=== PATIENT | male | born 1965 | race Caucasian/White ===

== ENCOUNTER → 2018-12-17 | Outpatient (CLI) | payer OTHER ==
[~2018-12-17] MED LIST: ALBU90OI INH; AZIT250 PO; Bactrim Ds Tab1 EACH PO; CEPH500 PO; CYCL10 PO; HYDACE5 PO; HYDR1TAB94 PO; Keflex500 MG PO; META800 PO; Naprosyn500 MG PO; Norco 5-325 Ta1 EACH PO; SULTRIDS PO
[2018-12-17 18:10] LABS: BASOPHILS ABSOLUTE AUTO 0.09 K/mm3 (0.00-0.23); BASOPHILS PERCENT AUTO 1 % (0-2); EOSINOPHILS ABSOLUTE AUTO 0.15 K/mm3 (0.00-0.68); EOSINOPHILS PERCENT AUTO 2 % (0-6); Hematocrit 45.1 % (37.0-53.0); Hemoglobin 14.7 g/dL (13.5-17.5); IMMATURE GRAN ABSOLUTE AUTO 0.02 K/mm3 (0.00-0.10); IMMATURE GRAN PERCENT AUTO 0 % (0-1); LYMPHOCYTES ABSOLUTE AUTO 2.31 K/mm3 (0.84-5.20); LYMPHOCYTES PERCENT AUTO 28 % (21-46); MONOCYTES ABSOLUTE AUTO 0.85 K/mm3 (0.16-1.47); MONOCYTES PERCENT AUTO 10 % (4-13); Mean Corpuscular HGB 31.5 pg (26.0-34.0); Mean Corpuscular HGB Conc 32.6 g/dL (31.5-36.5); Mean Corpuscular Volume 97 fL (80-100); Mean Platelet Volume 10.7 fL (9.1-12.4); NEUTROPHILS ABSOLUTE AUTO 4.88 K/mm3 (1.96-9.15); NEUTROPHILS PERCENT AUTO 59 % (41-73); Platelet Count 400 K/mm3 (150-400); RDW Standard Deviation 42.9 fL (35.1-46.3); Red Blood Cell Count 4.67 M/mm3 (4.30-5.90)
[2018-12-17 18:45] LABS: Alanine Aminotransfer (ALT/SGP 42 U/L (12-78); Albumin, Blood 4.3 g/dL (3.4-5.0); Albumin/Globulin Ratio 1.3 (0.8-1.8); Alk Phos 102 U/L (50-136); Anion Gap 8 mmol/L (6-16); Aspartate Aminotrans (AST/SGOT 39 U/L (12-37); Bilirubin, Total 0.7 mg/dL (0.1-1.0); Blood Urea Nitrogen 31 mg/dL (8-24); Bun/Creatinine Ratio 27.4 (12.0-20.0); CHOL/HDL RATIO 2.9; CO2, Blood 28 mmol/L (21-32); Calcium, Blood 9.1 mg/dL (8.5-10.1); Chloride, Blood 104 mmol/L (98-108); Cholesterol 215 mg/dL (50-200); Creatinine, Blood 1.13 mg/dL (0.60-1.20); Globulin, Blood 3.4 g/dL (2.2-4.0); Glomerular Filtration Rate >60 (60-); Glucose, Blood 101 mg/dL (70-99); HDL Cholesterol 75 mg/dL (>39); LDL/HDL RATIO 1.7; Low Density Lipoprotein Chol 125 mg/dL (0-110); Potassium, Blood 4.2 mmol/L (3.5-5.5); Sodium, Blood 140 mmol/L (136-145); Total Protein, Blood 7.7 g/dL (6.4-8.2); Triglycerides 77 mg/dL (30-160); Very Low Density Lipoprot Chol 15 mg/dL (6-32)
== END ==
LOC: LAB 17:45 → LAB SHORT 17:45
PROVIDERS: Nurse Practitioner Family
DX: I10 Essential (primary) hypertension (principal)
CPT/HCPCS: 80053; 80061; 85025

== ENCOUNTER 2019-02-10 21:01 | Emergency (ER) | payer OTHER ==
[~2019-02-10] VITALS: Ht 177.8 cm; Wt 93.0 kg
== END 2019-02-10 22:30 | disposition home or self-care (01) ==
LOC: ER 21:01
DX: M25.511 Pain in right shoulder (principal); F17.200 Nicotine dependence, unspecified, uncomplicated
CPT/HCPCS: 20610; 96372-59; 99283-25; J3301

== ENCOUNTER 2019-03-14 04:31 | Emergency (ER) | payer OTHER ==
[~2019-03-14] VITALS: Ht 175.3 cm; Wt 95.2 kg
== END 2019-03-14 05:45 | disposition home or self-care (01) ==
LOC: ER 04:31
DX: S81.812A Laceration without foreign body, left lower leg, initial encounter (principal); Z87.891 Personal history of nicotine dependence; W01.0XXA Fall on same level from slipping, tripping and stumbling without subsequent striking against object, initial encounter
CPT/HCPCS: 12002; 90471; 90714; 99282-25

== ENCOUNTER 2019-03-16 10:28 | Emergency (ER) | payer OTHER | END 2019-03-16 10:39 | disposition left against medical advice (07) | LOC: ER 10:28 | DX: Z53.21 Procedure and treatment not carried out due to patient leaving prior to being seen by health care provider (principal); M25.579 Pain in unspecified ankle and joints of unspecified foot ==

== ENCOUNTER 2019-08-20 09:19 | Day surgery (SDC) | payer OTHER ==
[~2019-08-20] VITALS: Ht 177.8 cm; Wt 101.4 kg
[~2019-08-20 09:19] MED LIST changes: +ALBU90OI; +DICL75ER; +QVAR REDIHALE10.6 G1; +TIZA4; +Voltaren100 GM; +ZESTORETIC 20-251 EA
--- NOTE | 2019-08-20 12:06 | NUR ---
08/20/19 1206 HARRIET CARLOS RIGHT SHOULDER BLOCK PERFORMED WITH DR. SAUCEDO. TIME OUT 1149 START TIME 1150 END TIME 1200 VITALS: 149/93, O2 95%, HR 93 PATIENT VERBALIZED NO COMPLAINTS POST PROCEDURE. VSS THROUGHOUT PROCEDURE.
== END 2019-08-20 14:49 | disposition home or self-care (01) ==
LOC: ORSCSDS 09:19
PROVIDERS: Orthopaedic Surgery
PROC: 0RNJ4ZZ Release Right Shoulder Joint, Percutaneous Endoscopic Approach (ICD-10-PCS; principal; 2019-08-20 11:15)
PROC: 0LS14ZZ Reposition Right Shoulder Tendon, Percutaneous Endoscopic Approach (ICD-10-PCS; principal; 2019-08-20 11:15)
PROC: 0LQ14ZZ Repair Right Shoulder Tendon, Percutaneous Endoscopic Approach (ICD-10-PCS; principal; 2019-08-20 11:15)
PROC: 0LU14JZ Supplement Right Shoulder Tendon with Synthetic Substitute, Percutaneous Endoscopic Approach (ICD-10-PCS; principal; 2019-08-20 11:15)
DX: M75.121 Complete rotator cuff tear or rupture of right shoulder, not specified as traumatic (principal); M75.41 Impingement syndrome of right shoulder; M75.21 Bicipital tendinitis, right shoulder; I10 Essential (primary) hypertension; I25.2 Old myocardial infarction; J44.9 Chronic obstructive pulmonary disease, unspecified; F17.210 Nicotine dependence, cigarettes, uncomplicated; Z79.899 Other long term (current) drug therapy
CPT/HCPCS: C1713; J0171; J0690; J1100; J2250; J2370; J2405; J2704; J2710; J2795; J3010; J7120

== ENCOUNTER 2020-05-15 21:03 | Emergency (ER) | payer OTHER ==
[~2020-05-15] VITALS: Ht 175.3 cm; Wt 95.2 kg
[2020-05-15 21:38] LABS: BASOPHILS ABSOLUTE AUTO 0.11 K/mm3 (0.00-0.23); BASOPHILS PERCENT AUTO 1 % (0-2); EOSINOPHILS ABSOLUTE AUTO 0.47 K/mm3 (0.00-0.68); EOSINOPHILS PERCENT AUTO 4 % (0-6); Hematocrit 50.7 % (37.0-53.0); Hemoglobin 16.7 g/dL (13.5-17.5); IMMATURE GRAN ABSOLUTE AUTO 0.08 K/mm3 (0.00-0.10); IMMATURE GRAN PERCENT AUTO 1 % (0-1); LYMPHOCYTES ABSOLUTE AUTO 3.27 K/mm3 (0.84-5.20); LYMPHOCYTES PERCENT AUTO 29 % (21-46); MONOCYTES ABSOLUTE AUTO 1.01 K/mm3 (0.16-1.47); MONOCYTES PERCENT AUTO 9 % (4-13); Mean Corpuscular HGB 31.9 pg (26.0-34.0); Mean Corpuscular HGB Conc 32.9 g/dL (31.5-36.5); Mean Corpuscular Volume 97 fL (80-100); Mean Platelet Volume 10.1 fL (9.1-12.4); NEUTROPHILS ABSOLUTE AUTO 6.52 K/mm3 (1.96-9.15); NEUTROPHILS PERCENT AUTO 57 % (41-73); Platelet Count 384 K/mm3 (150-400); RDW Coefficient Variation 12.3 % (11.7-14.2); RDW Standard Deviation 44.4 fL (35.1-46.3); Red Blood Cell Count 5.24 M/mm3 (4.30-5.90); White Blood Cell Count 11.46 K/mm3 (4.00-11.30)
[2020-05-15 21:56] LABS: Alanine Aminotransfer (ALT/SGP 81 U/L (12-78); Albumin, Blood 3.5 g/dL (3.4-5.0); Albumin/Globulin Ratio 0.9 (0.8-1.8); Alk Phos 166 U/L (50-136); Anion Gap 10 mmol/L (6-16); Aspartate Aminotrans (AST/SGOT 42 U/L (12-37); Bilirubin, Total 0.2 mg/dL (0.1-1.0); Blood Urea Nitrogen 16 mg/dL (8-24); Bun/Creatinine Ratio 16.3 (12.0-20.0); CO2, Blood 23 mmol/L (21-32); Calcium, Blood 9.3 mg/dL (8.5-10.1); Chloride, Blood 109 mmol/L (98-108); Creatinine, Blood 0.98 mg/dL (0.60-1.20); Glomerular Filtration Rate >60 (60-); Glucose, Blood 129 mg/dL (70-99); Potassium, Blood 3.8 mmol/L (3.5-5.5); Sodium, Blood 142 mmol/L (136-145); Total Protein, Blood 7.5 g/dL (6.4-8.2); Troponin I <0.015 ng/mL (0.000-0.040)
== END 2020-05-15 23:53 | disposition left against medical advice (07) ==
LOC: ER 21:03
PROVIDERS: Physician Assistant
DX: R06.02 Shortness of breath (principal); R10.9 Unspecified abdominal pain; R51.9 Headache, unspecified; R11.2 Nausea with vomiting, unspecified; R50.9 Fever, unspecified; R05 Cough; Z53.21 Procedure and treatment not carried out due to patient leaving prior to being seen by health care provider
CPT/HCPCS: 36415; 80053; 83690; 84484; 85025; 93005; 93010; 99285-25

== ENCOUNTER 2020-12-31 06:50 | Inpatient (IN) | payer OTHER ==
[~2020-12-31] VITALS: Ht 175.3 cm; Wt 95.9 kg
[~2020-12-31 06:50] MED LIST changes: -ALBU90OI; -QVAR REDIHALE10.6 G1; +QVAR REDIHALE10.6 G3 INH
[2020-12-31 07:39] LABS: BASOPHILS ABSOLUTE AUTO 0.03 K/mm3 (0.00-0.23); BASOPHILS PERCENT AUTO 0 % (0-2); EOSINOPHILS PERCENT AUTO 0 % (0-6); Hematocrit 48.4 % (37.0-53.0); Hemoglobin 16.4 g/dL (13.5-17.5); IMMATURE GRAN ABSOLUTE AUTO 0.04 K/mm3 (0.00-0.10); IMMATURE GRAN PERCENT AUTO 0 % (0-1); LYMPHOCYTES ABSOLUTE AUTO 0.66 K/mm3 (0.84-5.20); LYMPHOCYTES PERCENT AUTO 7 % (21-46); MONOCYTES ABSOLUTE AUTO 0.63 K/mm3 (0.16-1.47); MONOCYTES PERCENT AUTO 6 % (4-13); Mean Corpuscular HGB 30.9 pg (26.0-34.0); Mean Corpuscular HGB Conc 33.9 g/dL (31.5-36.5); Mean Corpuscular Volume 91 fL (80-100); Mean Platelet Volume 10.3 fL (9.1-12.4); NEUTROPHILS ABSOLUTE AUTO 8.52 K/mm3 (1.96-9.15); NEUTROPHILS PERCENT AUTO 86 % (41-73); Platelet Count 226 K/mm3 (150-400); RDW Coefficient Variation 12.1 % (11.7-14.2); White Blood Cell Count 9.88 K/mm3 (4.00-11.30)
[2020-12-31 07:56] LABS: Alanine Aminotransfer (ALT/SGP 72 U/L (12-78); Albumin, Blood 2.9 g/dL (3.4-5.0); Albumin/Globulin Ratio 0.7 (0.8-1.8); Alk Phos 145 U/L (50-136); Anion Gap 8 mmol/L (6-16); Aspartate Aminotrans (AST/SGOT 45 U/L (12-37); Bilirubin, Total 0.3 mg/dL (0.1-1.0); Blood Urea Nitrogen 21 mg/dL (8-24); Bun/Creatinine Ratio 19.4 (12.0-20.0); CO2, Blood 23 mmol/L (21-32); Calcium, Blood 8.3 mg/dL (8.5-10.1); Chloride, Blood 101 mmol/L (98-108); Creatinine, Blood 1.08 mg/dL (0.60-1.20); Globulin, Blood 4.2 g/dL (2.2-4.0); Glomerular Filtration Rate >60 (60-); Glucose, Blood 195 mg/dL (70-99); Potassium, Blood 3.9 mmol/L (3.5-5.5); Sodium, Blood 132 mmol/L (136-145); Total Protein, Blood 7.1 g/dL (6.4-8.2)
[2020-12-31 08:56] LABS: SARS-Cov-2 (COVID-19) PCR, MMC POSITIVE (NEGATIVE)
[2020-12-31] MEDS ORDERED: PRED20 PO (12:10)
[2020-12-31] MEDS ORDERED: HYDPAM25 PO (12:12)
[2020-12-31 14:24] LABS: U Amphetamine Screen Not Detected; U Barbituate Screen Not Detected; U Benzodiazapine Screen Not Detected; U Cocaine Screen Not Detected; U Methamphetamine Screen Not Detected
[2020-12-31 14:25] LABS: U Buprenorphine Screen Not Detected; U Cannabinoids Screen DETECTED; U Methadone Screen Not Detected; U Opiates Screen Not Detected; U Oxycodone Screen Not Detected; U Phencyclidine Screen Not Detected; U Propoxyphene Screen Not Detected
--- NOTE | 2020-12-31 19:23 | NUR ---
SHIFT SUMMARY VEDA ARRIVED FROM ER THIS MORNING, DENIED PAIN. WEANED TO RA, SATS UPPER 90S. SOME S/S WITHDRAWL INCLUDING SWEATS, SLIGHT SHAKING, ANXIETY. ONE PRN DOSE LIBRIUM GIVEN, PT EDUCATED ON FALL PRECAUTIONS, WITHDRAWL S/S, SCORING FROM 3-7 . NO FEVER THIS SHIFT SINCE ARRIVAL. CALL LIGHT IN REACH, REPORT GIVEN TO RODERICK KUHN
[2021-01-01 04:53] LABS: BASOPHILS ABSOLUTE AUTO 0.01 K/mm3 (0.00-0.23); BASOPHILS PERCENT AUTO 0 % (0-2); EOSINOPHILS PERCENT AUTO 0 % (0-6); Hematocrit 44.6 % (37.0-53.0); Hemoglobin 15.6 g/dL (13.5-17.5); IMMATURE GRAN ABSOLUTE AUTO 0.08 K/mm3 (0.00-0.10); IMMATURE GRAN PERCENT AUTO 1 % (0-1); LYMPHOCYTES ABSOLUTE AUTO 0.75 K/mm3 (0.84-5.20); LYMPHOCYTES PERCENT AUTO 7 % (21-46); MONOCYTES ABSOLUTE AUTO 0.88 K/mm3 (0.16-1.47); MONOCYTES PERCENT AUTO 9 % (4-13); Mean Corpuscular Volume 92 fL (80-100); Mean Platelet Volume 10.4 fL (9.1-12.4); NEUTROPHILS ABSOLUTE AUTO 8.59 K/mm3 (1.96-9.15); NEUTROPHILS PERCENT AUTO 83 % (41-73); Platelet Count 234 K/mm3 (150-400); RDW Standard Deviation 40.5 fL (35.1-46.3); Red Blood Cell Count 4.87 M/mm3 (4.30-5.90); White Blood Cell Count 10.31 K/mm3 (4.00-11.30)
[2021-01-01 05:15] LABS: Alanine Aminotransfer (ALT/SGP 60 U/L (12-78); Albumin, Blood 2.6 g/dL (3.4-5.0); Albumin/Globulin Ratio 0.7 (0.8-1.8); Alk Phos 117 U/L (50-136); Anion Gap 5 mmol/L (6-16); Aspartate Aminotrans (AST/SGOT 35 U/L (12-37); Bilirubin, Total 0.3 mg/dL (0.1-1.0); Blood Urea Nitrogen 20 mg/dL (8-24); CO2, Blood 25 mmol/L (21-32); Chloride, Blood 106 mmol/L (98-108); Creatinine, Blood 0.95 mg/dL (0.60-1.20); Globulin, Blood 3.7 g/dL (2.2-4.0); Glomerular Filtration Rate >60 (60-); Glucose, Blood 117 mg/dL (70-99); Magnesium, Blood 2.2 mg/dL (1.6-2.4); Potassium, Blood 4.1 mmol/L (3.5-5.5); Sodium, Blood 136 mmol/L (136-145); Total Protein, Blood 6.3 g/dL (6.4-8.2)
--- NOTE | 2021-01-01 07:30 | NUR ---
ASSUMED CARE: PT IN ROOM ON ROOM AIR. PORCELAIN BUILDUP ASSISTANT AT BEDSIDE. NO ACUTE NEEDS OR CONCERNS AT THIS TIME.
--- NOTE | 2021-01-01 07:39 | NUR ---
A/OX4. TMAX IN AM AT 100.6C, TYLENOL GIVEN. CIWA AT 10 IN EVENING, 2MG IV ATIVAN GIVEN. PATIENT SCORING LOW REMAINDER OF SHIFT. PT EATING/DRINKING. FLUIDS D/C AT 0500. INDEPENDENT TO TOILET. USING CALL LIGHT TO MAKE NEEDS KNOWN.
--- NOTE | 2021-01-01 14:42 | NUR ---
RN CAME INTO ROOM TO DISCONNECT IV AND PT BEGAN YELLING ABOUT HOW IRRITATED HE WAS ABOUT THE IV'S BEEPING AND HAVING TO BE CONNECTED TO THEM. OFFERED LIBRIUM AND HE SAID THAT WOULD BE FINE BUT HE WAS STILL LEAVING. LEFT TO GET LIBRIUM AND PT WAS ON PHONE WITH FAMILY TO GET A RIDE. TOLD HIM TO CALL WHEN RIDE GOT HERE AND IV'S WOULD BE DC'D. CALL TO DR STEWART TO MAKE HER AWARE AND SHE SAID SHE WOULD CONTACT DR DIAZ. PT CALLED THAT RIDE WAS HERE. IV DC'D WNL. PT STATED HE WAS AWARE THAT HE WOULD NOT GET ANY PRESCRIPTION OR DC INSTRUCTIONS ASSISTANCE. PT STATED THAT "ALL COMPLICATIONS ARE MY PROBLEM." AMBULATORY UPON DISCHARGE. DR DIAZ AWARE.
== END 2021-01-01 14:32 | disposition left against medical advice (07) | DRG 871 ==
LOC: ER 06:50 → MEDS 09:20
PROVIDERS: Emergency Medicine; Nurse Practitioner Acute Care; ADMIT Internal Medicine
PROC: 8E0ZXY6 Isolation (ICD-10-PCS; principal; 2020-12-31)
PROC: XW033E5 Introduction of Remdesivir Anti-infective into Peripheral Vein, Percutaneous Approach, New Technology Group 5 (ICD-10-PCS; 2020-12-31)
PROC: HZ2ZZZZ Detoxification Services for Substance Abuse Treatment (ICD-10-PCS; 2021-01-01)
DX: A41.89 Other specified sepsis (principal); U07.1 COVID-19; J12.82 Pneumonia due to coronavirus disease 2019; J96.01 Acute respiratory failure with hypoxia; E87.1 Hypo-osmolality and hyponatremia; J44.0 Chronic obstructive pulmonary disease with (acute) lower respiratory infection; J44.1 Chronic obstructive pulmonary disease with (acute) exacerbation; R65.20 Severe sepsis without septic shock; I11.0 Hypertensive heart disease with heart failure; I50.9 Heart failure, unspecified; F10.20 Alcohol dependence, uncomplicated; R56.9 Unspecified convulsions; J62.8 Pneumoconiosis due to other dust containing silica; Z96.651 Presence of right artificial knee joint; Z98.890 Other specified postprocedural states; Z79.51 Long term (current) use of inhaled steroids; Z79.899 Other long term (current) drug therapy
CPT/HCPCS: 36415; 71045; 80053; 83605; 83735; 84145; 85025; 87040; 93005; 93010; 94640; 94644; 94760; 96361; 96365; 96367; 99285-25; A9270; J0456; J0696; J1650; J2060; J3475; J7030; J7050; U0004

== ENCOUNTER 2021-01-03 20:20 | Inpatient (IN) | payer OTHER ==
[~2021-01-03] VITALS: Ht 172.7 cm; Wt 95.2 kg
[~2021-01-03 20:20] MED LIST changes: +HYDPAM25 PO; +PRED20 PO
[2021-01-03 20:43] LABS: BASOPHILS ABSOLUTE AUTO 0.05 K/mm3 (0.00-0.23); BASOPHILS PERCENT AUTO 0 % (0-2); EOSINOPHILS ABSOLUTE AUTO 0.02 K/mm3 (0.00-0.68); EOSINOPHILS PERCENT AUTO 0 % (0-6); Hematocrit 44.4 % (37.0-53.0); Hemoglobin 15.6 g/dL (13.5-17.5); Mean Corpuscular HGB 31.9 pg (26.0-34.0); Mean Corpuscular HGB Conc 35.1 g/dL (31.5-36.5); Mean Corpuscular Volume 91 fL (80-100); Platelet Count 424 K/mm3 (150-400); RDW Standard Deviation 39.8 fL (35.1-46.3); Red Blood Cell Count 4.89 M/mm3 (4.30-5.90); White Blood Cell Count 11.29 K/mm3 (4.00-11.30)
[2021-01-03 20:47] LABS: IMMATURE GRAN ABSOLUTE AUTO 0.19 K/mm3 (0.00-0.10); IMMATURE GRAN PERCENT AUTO 2 % (0-1); LYMPHOCYTES ABSOLUTE AUTO 1.08 K/mm3 (0.84-5.20); LYMPHOCYTES PERCENT AUTO 10 % (21-46); MONOCYTES ABSOLUTE AUTO 0.97 K/mm3 (0.16-1.47); MONOCYTES PERCENT AUTO 9 % (4-13); NEUTROPHILS ABSOLUTE AUTO 8.98 K/mm3 (1.96-9.15); NEUTROPHILS PERCENT AUTO 80 % (41-73)
[2021-01-03 20:57] LABS: Anion Gap 8 mmol/L (6-16); Blood Urea Nitrogen 25 mg/dL (8-24); Bun/Creatinine Ratio 22.5 (12.0-20.0); CO2, Blood 25 mmol/L (21-32); Calcium, Blood 8.5 mg/dL (8.5-10.1); Chloride, Blood 100 mmol/L (98-108); Creatinine, Blood 1.11 mg/dL (0.60-1.20); Glomerular Filtration Rate >60 (60-); Glucose, Blood 218 mg/dL (70-99); Potassium, Blood 4.1 mmol/L (3.5-5.5); Sodium, Blood 133 mmol/L (136-145)
[2021-01-03 21:40] LABS: Magnesium, Blood 2.2 mg/dL (1.6-2.4)
--- NOTE | 2021-01-04 00:20 | NUR ---
CARE ASSUMPTION UPON ARRIVAL PT WAS COOPERATIVE. PT WAS ANXIOUS, HAD A HEADACHE AND WAS DIAPHORETIC CIWA-8. LIBRIUM GIVEN PER ORDER. PT DENIED ANY SOB AND MAINTAINED O2 SATS >92% ON AIRVO 40L/40% FIO2. LUNG SOUNDS ARE CLEAR WITH DIMINISHED BILAT BASES, NO COUGH NOTED. PT GIVEN WATER AND OPTION TO WEAR HOSPITAL GOWN WHICH HE DECLINED HE WAS FEELING WARM. VSS AT THIS TIME AND AFEBRILE. PT IS CURRRENTLY SLEEPING WITH CALL LIGHT IN REACH.
[2021-01-04 03:29] LABS: BASOPHILS ABSOLUTE AUTO 0.09 K/mm3 (0.00-0.23); BASOPHILS PERCENT AUTO 1 % (0-2); EOSINOPHILS ABSOLUTE AUTO 0.02 K/mm3 (0.00-0.68); EOSINOPHILS PERCENT AUTO 0 % (0-6); Hematocrit 43.8 % (37.0-53.0); Hemoglobin 14.9 g/dL (13.5-17.5); Mean Corpuscular HGB 31.6 pg (26.0-34.0); Mean Corpuscular Volume 93 fL (80-100); Mean Platelet Volume 10.1 fL (9.1-12.4); Platelet Count 359 K/mm3 (150-400); RDW Coefficient Variation 11.9 % (11.7-14.2); RDW Standard Deviation 41.2 fL (35.1-46.3); Red Blood Cell Count 4.71 M/mm3 (4.30-5.90); White Blood Cell Count 13.76 K/mm3 (4.00-11.30)
[2021-01-04 03:32] LABS: IMMATURE GRAN ABSOLUTE AUTO 0.34 K/mm3 (0.00-0.10); IMMATURE GRAN PERCENT AUTO 3 % (0-1); LYMPHOCYTES ABSOLUTE AUTO 1.56 K/mm3 (0.84-5.20); LYMPHOCYTES PERCENT AUTO 11 % (21-46); MONOCYTES ABSOLUTE AUTO 1.44 K/mm3 (0.16-1.47); MONOCYTES PERCENT AUTO 11 % (4-13); NEUTROPHILS ABSOLUTE AUTO 10.31 K/mm3 (1.96-9.15); NEUTROPHILS PERCENT AUTO 75 % (41-73)
[2021-01-04 03:47] LABS: Alanine Aminotransfer (ALT/SGP 34 U/L (12-78); Albumin, Blood 2.2 g/dL (3.4-5.0); Albumin/Globulin Ratio 0.5 (0.8-1.8); Alk Phos 100 U/L (50-136); Anion Gap 3 mmol/L (6-16); Aspartate Aminotrans (AST/SGOT 31 U/L (12-37); Bilirubin, Total 0.4 mg/dL (0.1-1.0); Blood Urea Nitrogen 26 mg/dL (8-24); Bun/Creatinine Ratio 23.9 (12.0-20.0); CO2, Blood 27 mmol/L (21-32); Calcium, Blood 8.1 mg/dL (8.5-10.1); Chloride, Blood 104 mmol/L (98-108); Creatinine, Blood 1.09 mg/dL (0.60-1.20); Globulin, Blood 4.4 g/dL (2.2-4.0); Glomerular Filtration Rate >60 (60-); Glucose, Blood 154 mg/dL (70-99); Potassium, Blood 4.4 mmol/L (3.5-5.5); Sodium, Blood 134 mmol/L (136-145); Total Protein, Blood 6.6 g/dL (6.4-8.2)
--- NOTE | 2021-01-04 05:19 | NUR ---
SHOP MECHANIC HELPER SUMMARY PT HAS MAINTAINED O2 SATS >92% ON AIRVO 4L W 40% FIO2. PT IS AXO X3 NOT SURE OF THE DATE. PT HAS REMAINED AFEBRILE THIS SHIFT THOUGH HE HAS BEEN VERY DIAPHORETIC ALL NIGHT. CIWA'S 2-8 DUE TO DIAPHORESIS AND HEADACHE, 50MG LIBRIUM GIVEN X1, PT'S SBP IN THE 100'S THOUGH IT DID DROP LOW 77 WHILE HE WAS SLEEPING, BP BACK UP TO 100'S WHEN AWOKEN. TELE HAS SHOWN NSR IN THE 70'S WITH OCCASIONAL PVC'S. HR LOW 58 WHILE PT WAS ASLEEP. PT REPORTS NUMBNESS IN RLE FOR THE LAST 6 WEEKS. PT REPORTED DRINKING WHISKEY "JUST A SIP" BEFORE COMING TO THE HOSPITAL. PT SLEEPING ON AND OFF FOR MOST OF THE SHIFT. WILL REPORT TO ONCOMING RN.
--- NOTE | 2021-01-04 09:52 | NUR ---
Care Assumed - Provider visit Pt sleeping but easily awaken. When care assumed pt on Airvo 35 L, FIO2 40%, changed to 4 L via humidified NC. When asking pt questions, pts SPO2 decreased to 78%-low 80's with slow recovery. Pt denies feeling SOB but appears flushed. Pt switched to Airvo 35 L, FIO2 35%, SPO2 > 90%. Pt A/O, able to state correct location, event, and year but unable to state month/date. States drinking "fifth of whiskey" everyday and states last drink was a "few days ago." When asked what a few days means pt states two days ago. Currently not very diaphortics but has mild tremors, unable to add successfully, CIWA of 5.
--- NOTE | 2021-01-04 10:38 | NUR ---
Update- Family calls Pts sister, Laury called and updated on current pt status. All questions answered. Phone call transfered into room and pt speaking to sister. Missed phone call from , Risa, called back but unable to leave voicemail due to voicemail not being setup. Will attempt to call again.
--- NOTE | 2021-01-04 11:31 | NUR ---
Update- Pt crying Pt very emotional after speaking to sisterLaury on phone. Crying and states, " I don't want to " " no one can visit me, I want to go home ." Updated on visiting policy and made aware that he can have a visitor a day from [phone] and family can come to visit on window outside as well. Updated on current treatment being provided and fio2 requirments being low. Pt mood appears better after this and no longer crying. Educated on ETOH withdrawal and negative effects of drinking. pt states, "i will stop drinking, i want to live for my " ALso, educated on importance of staying in hospital for current treatment, pt states understanding and will stay. Airvo 35 L/min, FIO2 35% SPO2 > 90%. Lung sounds dim/clear. Pt has nonproductive cough. NSR. VSS. Eating lunch in bed and would like to shave marcus afterwards. Will assist with shaving marcus. Pt states having pain (5/10) on left lower rib from bull riding injury "years ago", treated per emar.
--- NOTE | 2021-01-04 12:11 | NUR ---
Update- pain pt continues to have left lower rib pain, 02/13. States having similar pain at home, started 10 years ago, comes once a month and last for one week. PT states " Starts when i'm not doing nothing, i have too many kids to worry about". Treated per emar with tramadol 50 mg. Will continue to monitor. vss. nsr. Dillon shaved per pt request, tolerated well.
--- NOTE | 2021-01-04 12:29 | NUR ---
Update- Spoke to , Risa Pts updated on patient status and currently on phone with pt. sister her daughter will be coming in to see pt. Pt appears cheerful after speaking to his .
--- NOTE | 2021-01-04 14:00 | NUR ---
Shift summary Report given to Puja Townsend. Dr. Hahn in to see patient, updated on patients pain and emotional status. Pt states pain has decreased to 5/10. Remains on Airvo, 35 l/MIN AND FIO2 35%. A/O X 4. Continues to be emotional, spoke to multiple family members on the phone. Father Sacha gave patient blessing from door and pt emotional but states thank you. VSS. NSR. Call light within reach.
--- NOTE | 2021-01-04 16:03 | NUR ---
ASSUMED CARE OF PT. REPORT RECEIVED FROM KEY LAN. PT RESTING IN BED WATCHING TV. PT'S SISTER CAME TO VISIT HIM, BUT REFUSED N95 AFTER BEING EDUCATED ON THE FACT THAT IT'S NOT GUARANTEED TO PROTECT HER SINCE SHE HASN'T BEEN FITTED. INSTEAD SHE JUST TALKED TO HIM ON THE PHONE FROM OUTSIDE THE DOOR OF THE ROOM. PT'S LUNGS ARE CLEAR. OXYGEN TURNED DOWN TO 7L FROM 9L ON THE HIGH FLOW NASAL CANNULA AND SPO2 REMAINS 97%. SR, BP STABLE. NO OTHER REQUESTS FROM PT AT THIS TIME. CONTINUE TO MONITOR.
--- NOTE | 2021-01-04 20:30 | NUR ---
ASSUMED CARE OF PT. REPORT RECEIVED FROM JUDITH MACKEY. PT LYING IN BED WATCHING TV. VSS. ON 7L HIGH FLOW NC, SPO2 97%. ANSWERING ALL ORIENTATION QUESTIONS, CONFUSED ABOUT MONTH/DATE OTHERWISE ANSWERS APPROPRIATELY. REQUESTING SOMETHING TO HELP WITH HAND TREMORS. CIWA SCORE 8, 25MG LIBRIUM GIVEN. PT COMPLAINING OF 8/10 L RIB PAIN, DECLINED NEED FOR PAIN MEDICATION AT THIS TIME STATES "DON'T NORMALLY TAKE ANYTHING, JUST WORK THROUGH THE PAIN", WILL CONTINUE TO MONITOR. PT A LITTLE EMOTIONAL ABOUT BEING IN ISOLATION AND NOT HAVING VERY MANY VISITORS TODAY. REQUESTING FOOD AND APPLE JUICE AT THIS TIME.
--- NOTE | 2021-01-05 08:23 | NUR ---
CARE OF PT ASSUMED AT 0700. PT AWAKE WATCHING TV. CIWA 10. C/O 02/13 HEADACHE. PT HAS MOD TREMORS TO ARMS. PT FEELS ANXIOUS AND CANT WAIT TO GO HOME. LIBRIUM GIVEN; WILL FOLLOW CLOSELY W/D SYMTOMS MAY BECOME WORSE. LUNGS DECREASED BUT RELATIVELY CLEAR, SATS >90% ON 4L VIA HIGHFLO. BP STABLE, AFEBRILE. DR PATEL IN THIS AM, FULL UPDATE GIVEN.
--- NOTE | 2021-01-05 09:00 | NUR ---
PT FEELING VERY ANXIOUS/RESTLESS. LIBRIUM 50MG GIVEN.
--- NOTE | 2021-01-05 09:12 | NUR ---
PT'S GIVEN UPDATE W PT'S PERMISSION.
--- NOTE | 2021-01-05 11:16 | NUR ---
Met pt. lying in bed resting pt. is fine encouraged pt and offered prayers.
--- NOTE | 2021-01-05 17:55 | NUR ---
CIWA AROUND 10 FOR MOST OF SHIFT FOR TREMORS AND MILD ANXIETY. LIBRIUM SEEMED TO WORK WELL FOR PT. SATS REMAINED STABLE >90% ON 4L. PT DOES HAVE DYSPNEA W EXERTION AND SATS DROP TO 80%, BUT RECOVERS QUICKLY. PT GIVEN LASIX THIS AM W GOOD U/O. PT LOOKING FORWARD TO MOVING TO A ROOM W A MORE PRIVATE BATHROOM.
--- NOTE | 2021-01-05 18:46 | NUR ---
SATS 98% ON 4L. O2 DECREASED TO 2L. PT ATE 100% OF MEAL.
[2021-01-06 04:12] LABS: Anion Gap 3 mmol/L (6-16); Blood Urea Nitrogen 26 mg/dL (8-24); Bun/Creatinine Ratio 29.7 (12.0-20.0); CO2, Blood 29 mmol/L (21-32); Calcium, Blood 8.3 mg/dL (8.5-10.1); Chloride, Blood 105 mmol/L (98-108); Creatinine, Blood 0.88 mg/dL (0.60-1.20); Glomerular Filtration Rate >60 (60-); Glucose, Blood 129 mg/dL (70-99); Potassium, Blood 4.2 mmol/L (3.5-5.5); Sodium, Blood 137 mmol/L (136-145)
--- NOTE | 2021-01-06 08:17 | NUR ---
AM NOTE... ASSUMED CARE OF PT AT 0700. PT IS A&Ox4 ABLE TO STATE HIS NAME/ WHERE HE IS, THE TOWN AND THE YEAR. PT IS IN NSR IN THE 80'S BP STABLE. PT IS AFEBRILE. NO SWELLING OR EDEMA NOTED ON ASSESSMENT. L/S CLEAR IN THE UPPER LOBES, COARSE IN THE RIGHT MID AND DIM IN THE LOWER LOBES. PT WAS ON 4 L NC AT THE START OF THIS SHIFT. WHILE THIS RN WAS IN THE ROOM FOR ASSESSMENT PT WAS EATING AND HIS O2 SATS DROPPED, THE O2 WAS TITRATED UP TO 6L NC TO KEEP HIS O2 SATS >90%. PT'S CIWA WAS 14 THIS AM. PT KEEPS SAYING HE IS LEAVING AMA, PT WAS UPDATED ON HIS CURRENT CONDITION NEEDING 6L OF O2 TO KEEP HIS O2 SATS >90% THE STATUS OF HIS CIWA/ETOH W/Ds. PT STATED "I DON'T CARE, I JUST WANT TO GO HOME." DR. PATEL IN THE ROOM TO ASSESS THE PT. PT IS UPSET ABOUT FEELING LIKE HE IS "IN A FISH BOWL" PT EDUCATED THAT IF HE USES HIS CALL LIGHT STAFF WOULD COME INTO THE ROOM AND ASSIST HIM, CLOSE THE CURTAIN AND HELP WITH HIS PRIVACY BUT THAT THE CURTAINS NEEDED TO STAY OPEN FOR HIS SAFETY. WILL CONTINUE TO MONITOR
--- NOTE | 2021-01-06 08:52 | NUR ---
PT UPDATE... PT GOT UP IN THE ROOM, USED THE URINAL AND MISSED PEEING A LARGE AMOUNT ON THE FLOOR. THE PT THEN STARTED WALKNING AROUND THE BED, PT WAS UNSTABLE WOBBLING BACK AND FORTH USING THE BED AND THE COUNTER TOP FOR STABILITY. THIS RN ENTERED THE ROOM TO HELP THE PT, THE PT WAS VERY ANXIOUS AND UPSET STATING HE WAS LEAVING TO GO HOME AND NOTHING WOULD STOP HIM. PT IS A&Ox4. PT UNDERSTANDS THAT HIS CONDITION COULD SERIOUSLY DETERIORATE IF HE LEFT AGAINST MEDICAL ADVICE. PT STATED HIS UNDERSTANDING THAT "I MIGHT AND THATS OKAY I JUST WANT TO GO HOME." WAS CALLED AND NOTIFIED. PT'S WAS CALLED AND UPDATED ON THE PT'S CONDITION/STATE OF MIND. WILL CONTINUE TO MONITOR.
--- NOTE | 2021-01-06 12:18 | NUR ---
Pt. is not in the room, he is discharged this morning, wish him all the best while at home.
== END 2021-01-06 10:10 | disposition left against medical advice (07) | DRG 871 ==
LOC: ER 20:20 → ICUW 21:30
PROVIDERS: Internal Medicine; Nurse Practitioner Acute Care; Student in an Organized Health Care Education/Training Program; ADMIT Internal Medicine
PROC: XW033E5 Introduction of Remdesivir Anti-infective into Peripheral Vein, Percutaneous Approach, New Technology Group 5 (ICD-10-PCS; principal; 2021-01-03)
DX: A41.89 Other specified sepsis (principal); U07.1 COVID-19; J96.01 Acute respiratory failure with hypoxia; J12.82 Pneumonia due to coronavirus disease 2019; E87.1 Hypo-osmolality and hyponatremia; Z96.651 Presence of right artificial knee joint; F10.20 Alcohol dependence, uncomplicated; E86.1 Hypovolemia
CPT/HCPCS: 36415; 71045; 80048; 80053; 83735; 84145; 85025; 93005; 93010; 94640; 96365; 99285-25; A9270; J1650; J1885; J1940; J7030; J7040

== ENCOUNTER → 2021-04-29 | Outpatient (CLI) | payer OTHER | LOC: LAB SHORT 15:20 | DX: R21 Rash and other nonspecific skin eruption (principal) | CPT/HCPCS: 87070; 87077; 87147; 87186; 87205 ==

== ENCOUNTER 2021-11-05 14:05 | Emergency (ER) | payer OTHER ==
[~2021-11-05] VITALS: Ht 175.3 cm; Wt 103.0 kg
== END 2021-11-05 15:55 | disposition left against medical advice (07) ==
LOC: ER 14:05
DX: S61.217A Laceration without foreign body of left little finger without damage to nail, initial encounter (principal); Z53.21 Procedure and treatment not carried out due to patient leaving prior to being seen by health care provider
CPT/HCPCS: 99282

== ENCOUNTER 2022-01-25 10:19 | Day surgery (SDC) | payer OTHER ==
[~2022-01-25] VITALS: Ht 177.8 cm; Wt 101.0 kg
--- NOTE | 2022-01-25 12:52 | NUR ---
01/25/22 1252 Simran Yu TIME OUT TO VERIFY CORRECT PT, SITE, PROCEEDURE AND ALLERGIES. PT ELECTED PROCEED WITH SHOULDER BLOCK. VSS THROUGHOUT PROCEEDURE, ENCOURAGED PT TO TAKE DEEP BREATHS. PT TOLERATED WELL. REPORT GIVEN TO KEY ORELLANA
--- NOTE | 2022-01-25 13:28 | NUR ---
01/25/22 1328 DERECK SANTACRUZ EPI 1MG (3MG TOTAL) ADDED TO 3 BAGS OF 3000ML OF LR FOR IRRIGATION DURING PROCEDURE. LIDOCAINE 2% WITH EPI 1:100,000 INJECTED INTO OPERATIVE SITE AT BEGINNING OF CASE BY DR. JIMENEZ
== END 2022-01-25 15:35 | disposition home or self-care (01) ==
LOC: ORSCSDS 10:19
PROVIDERS: Orthopaedic Surgery
PROC: 0LM24ZZ Reattachment of Left Shoulder Tendon, Percutaneous Endoscopic Approach (ICD-10-PCS; principal; 2022-01-25 11:45)
PROC: 0LS44ZZ Reposition Left Upper Arm Tendon, Percutaneous Endoscopic Approach (ICD-10-PCS; principal; 2022-01-25 11:45)
PROC: 0RNK4ZZ Release Left Shoulder Joint, Percutaneous Endoscopic Approach (ICD-10-PCS; principal; 2022-01-25 11:45)
DX: M75.122 Complete rotator cuff tear or rupture of left shoulder, not specified as traumatic (principal); M75.22 Bicipital tendinitis, left shoulder; M75.42 Impingement syndrome of left shoulder; I10 Essential (primary) hypertension; I25.2 Old myocardial infarction; J44.9 Chronic obstructive pulmonary disease, unspecified; Z79.899 Other long term (current) drug therapy
CPT/HCPCS: C1713; J0171; J0690; J1100; J2250; J2310; J2370; J2405; J2704; J2795; J3010; J7120

== ENCOUNTER → 2022-07-28 | Outpatient (CLI) | payer OTHER ==
[2022-08-05 10:20] LABS: Stool Occult Bld Immuno 1 Negative (NEGATIVE)
== END ==
LOC: LAB SHORT 12:00
PROVIDERS: Physician Assistant
DX: Z12.11 Encounter for screening for malignant neoplasm of colon (principal)
CPT/HCPCS: G0328